=== PATIENT | male | born 1950 | race Caucasian/White ===

== ENCOUNTER → 2017-01-13 | Day surgery (SDC) | payer OTHER ==
[~2017-01-13] MED LIST: ALLEGRA ALLERG180 MG PO; AMARYL PO; ASPIRIN81 M2 PO; ATORVASTATIN CA10 MG PO; CALCIUM 500 +1 EAC6 PO; CENTRUM SILVER PO; COZAAR100 MG PO; HYDROCHLOROTH12.5 MG PO; JANUVIA100 MG PO; LANTUS SOLOSTAR3 ML SQ; LOC PO; LORTAB 5-325 M1 EACH PO; METFORMIN PO; MUCUS RELIEF C400 MG PO; MULTIPLE VITAMI1 T11 PO; NEURONTIN PO; VITAMIN D2000 UNI1 PO; VITAMIN D50000 UNIT PO
--- NOTE | ~2017-01-13 | OR ---
Unit #: [id number] #: [id number] Patient: MARCUS LUTZ [id number] [address] [address] [id number] O MR#: [id number] NAME: MARCUS LUTZ ROOM: Date of Procedure: 01/13/2017 Admission Date: 01/13/2017 Surgeon: Mati Solano M.D. : 1950 Attending Physician: Mati Solano M.D. Primary Care Physician: Minoo Clements OPERATIVE REPORT PREOPERATIVE DIAGNOSIS History of colon cancer. POSTOPERATIVE DIAGNOSIS Scattered diverticulum. PROCEDURE PERFORMED Colonoscopy to ileotransverse colon anastomosis. ANESTHESIA IV sedation. COMPLICATIONS None. INDICATIONS FOR PROCEDURE The patient is a 76-year-old gentleman with a history of colon cancer, who presents 1 year out for followup colonoscopy. DESCRIPTION OF PROCEDURE The patient was taken to the operating theater and placed in left lateral decubitus position. IV sedation was initiated. Digital rectal exam was normal. Colonoscope was then passed under direct vision and navigated to the anastomosis. The patient had no evidence of neoplastic lesions. There were scattered diverticulum mainly in the sigmoid colon. He tolerated the procedure well and sent to the recovery room in good condition. PLAN Recommend repeat colonoscopy in 2 years. Dictated by... Tyler Espinosa/jairl TD: 01/13/2017 23:39 JOB #: [id number] Unit #: [id number] #: [id number] Patient: MARCUS LUTZ OPERATIVE REPORT Page 1 of 1 X Mati Solano MD X PROCEDURE OPERATIVE NOTE
== END | disposition home or self-care (01) ==
LOC: COPS 10:39
DX: Z12.11 Encounter for screening for malignant neoplasm of colon (principal); K57.30 Diverticulosis of large intestine without perforation or abscess without bleeding; E11.9 Type 2 diabetes mellitus without complications; I10 Essential (primary) hypertension; I25.10 Atherosclerotic heart disease of native coronary artery without angina pectoris; Z85.038 Personal history of other malignant neoplasm of large intestine; Z87.01 Personal history of pneumonia (recurrent); Z79.4 Long term (current) use of insulin; Z79.82 Long term (current) use of aspirin; Z79.899 Other long term (current) drug therapy
CPT/HCPCS: 82947; J2250

== ENCOUNTER → 2017-02-14 | Outpatient (CLI) | payer OTHER ==
--- NOTE | ~2017-02-14 | CT2 ---
[facility] A Service of [facility] RADIOLOGY TEXT RESULTS PATIENT: MARCUS LUTZ LOCATION: [facility] : 46 UNIT #: [id number] AGE: [address]: Fabián Kirk MD SEX: M ORDER DR: [id number] [facility] [address] [place], [place] [address] [id number] O MR#: [id number] [facility] #: [id number] NAME: MARCUS LUTZ : 1950 SEX: M STUDY DATE/TIME: 02/14/2017 13:25 UNIT: [facility] ROOM: STUDY DESCRIPTION: CT Abd and Pelv W Cont Attending Physician: Fabián Kirk M.D. Referring Physician: Fabián Kirk M.D. Ordering Physician: Fabián Kirk M.D. Primary Care Physician: Minoo Velazquez M.D. MEDICAL IMAGING REPORT This report is preliminary unless electronic signature is present EXAM CT abdomen and pelvis with contrast, 02/14/2017 HISTORY Malignant carcinoid of the descending colon, colectomy last year. Observation for metastatic disease. Restaging. Patient states no current complaints. COMPARISON CT abdomen and pelvis with contrast, 10/24/2016 PROCEDURE 5.0 mm axial images from the lung bases through the lesser trochanters after intravenous contrast administration. Enteric contrast was not administered. Sagittal and coronal reformatted images were obtained. This CT exam was performed with one or more of the following radiation dose reduction techniques: automatic exposure control, adjustment of mA and/or kV according to patient size, and iterative reconstruction. FINDINGS ABDOMEN FINDINGS: Emphysematous and fibrotic changes are present within the imaged lung bases with benign calcified granulomas in the right middle lobe and right lower lobe. Heart size appears mildly enlarged. Liver, gallbladder, spleen, pancreas, adrenals and kidneys are within normal limits. Surgical changes are seen within the ascending colon with ileocolic anastomosis. There is mild abnormal bowel wall thickening just proximal to the anastomosis with adjacent mesenteric fat stranding (see series 2, image 65 and series 602, image 25, denoted by arrows). This could represent some chronic inflammatory change, as similar findings were documented on the 10/24/2016 and 07/21/2016 examinations. No pathologic adenopathy is identified. No ascites. [facility] A Service of [facility] RADIOLOGY TEXT RESULTS PATIENT: MARCUS LUTZ LOCATION: [facility] : 46 UNIT #: [id number] AGE: [address]: Fabián Kirk MD SEX: M ORDER DR: Diverticular changes are present within the descending and sigmoid colon without evidence of acute diverticulitis. Previously described region of tethering between the sigmoid colon and ascending colon described on previous examination is not seen on today's study. PELVIS FINDINGS: Urinary bladder, prostate and rectum are within normal limits. No pelvic adenopathy or free fluid is identified. No suspicious osseous lesions are identified. IMPRESSION 1. Persistent abnormal thickening and stranding surrounding a blind ending loop of bowel just proximal to the ileocolic anastomosis in the right lower abdomen, as described. It has a similar appearance compared to the two previous studies from 10/24/2016 and 07/21/2016. A well-defined mass lesion is not identified. This could represent some chronic inflammatory response. Continued attention at surveillance imaging would be recommended. 2. There is no convincing evidence of metastatic disease elsewhere within the abdomen or pelvis. 3. Colonic diverticulosis. 4. Emphysematous changes and fibrosis within the lung bases. Dictated by... Kendal Martin M.D. THIS IS AN ELECTRONICALLY VERIFIED REPORT Kendal Martin M.D. at 02/16/2017 7:11 AM ASHLEY/shikha TD: 02/15/2017 09:51 JOB #: [id number] MEDICAL IMAGING REPORT Page 1 of 1 COPY
[2017-02-14 13:50] LABS: POC - CREATININE 0.75 mg/dL (0.64-1.27); POC - GFR >60.0 mL/min (>60)
== END | disposition home or self-care (01) ==
LOC: CCAT 10:48
PROVIDERS: Internal Medicine Hematology
DX: C7A.02 Malignant carcinoid tumors of the appendix, large intestine, and rectum (principal); K57.30 Diverticulosis of large intestine without perforation or abscess without bleeding
CPT/HCPCS: 74177; 82565; Q9967